=== PATIENT | female | born 1970 | race Caucasian/White ===

== ENCOUNTER 2016-09-08 11:03 | Emergency (ER) | payer OTHER ==
[~2016-09-08] VITALS: Ht 170.2 cm; Wt 54.1 kg
[~2016-09-08 11:03] MED LIST: albuterol inhaler
[2016-09-08 11:05] VITALS: BP 102/54; RESP 18; O2SAT 100
[2016-09-08 11:31] LABS: BASOPHILS % (AUTO) 0.5 % (0-3); EOSINOPHILS % (AUTO) 1.2 % (0-5); MONOCYTES % (AUTO) 7.6 % (4-12); Mean Corpuscular Hemoglobin 31.3 pg (27.0-35.0); Mean Corpuscular Volume 93.3 fL (81-100); Platelet Count 260 bil/L (150-400)
--- NOTE | 2016-09-08 11:49 | DRSVH ---
PROCEDURE: X-RAY CHEST ONE VIEW, PORTABLE ([id number]) INDICATIONS: CHEST PAIN TECHNIQUE: One view of the chest was acquired. COMPARISON: [facility], CR, CHEST 2VW, 08/15/2008, 17:07. FINDINGS: Surgical changes and devices: None. Lungs and pleura: Improved aeration of the lungs is noted since the previous exam with resolution of previously seen density at the right lung base. Hyperexpansion of the lungs appears to be present. No focal consolidation, effusion, or pneumothorax is evident. There is mild scarring within the lung apices. Mediastinum: Mediastinal contours appear normal. Heart size is normal. Bones and chest wall: No suspicious bony lesions. Overlying soft tissues appear unremarkable. IMPRESSION: 1. No acute cardiopulmonary process is suspected. 2. Mild pulmonary hyperexpansion may be related to prominent inspiratory effort. Chronic obstructiv e pulmonary disease may also have this appearance. Dictated by: Karthik Anguiano M.D. on 09/08/2016 at 10:46 Approved by: Karthik Anguiano M.D. on 09/08/2016 at 10:47
[2016-09-08 11:54] LABS: INR 0.97 ratio
[2016-09-08 12:11] LABS: Magnesium 2.2 mg/dL (1.6-2.6)
[2016-09-08 12:16] LABS: TROPONIN T < 0.010 ug/L (0.0-0.011)
[2016-09-08] MEDS ORDERED: LORazepam 1 mg Tablet PO ONE (12:55)
--- NOTE | 2016-09-08 13:27 | DRSVH ---
PROCEDURE: X-RAY NECK SOFT TISSUE ([id number]) INDICATIONS: sensation of something stuck in throat TECHNIQUE: 2 views of the neck were acquired. COMPARISON: None. FINDINGS: Airway: The airway appears patent. Soft tissues: Prevertebral soft tissues are normal in thickness. The epiglottis and aryepiglottic f olds appear normal. No soft tissue gas. No radiopaque foreign bodies are evident. Bones: No suspicious bony lesions. Reversal of the normal cervical lordosis is present with associa hayes mild to moderate degenerative changes, most pronounced at the level of C5-6. No spondylolisthesi s is evident. Visualized cervical spine is normally aligned. IMPRESSION: 1. The airway appears to be within normal limits. No radiopaque foreign bodies are evident. 2. Normal epiglottis. No prevertebral soft tissue swelling. 3. Mild to moderate degenerative changes of the cervical spine are most pronounced at C5-6. Dictated by: Karthik Anguiano M.D. on 09/08/2016 at 12:24 Approved by: Karthik Anguiano M.D. on 09/08/2016 at 12:25
--- NOTE | 2016-09-08 13:41 | ED.REPORT ---
HPI-Neck Pain Free Text HPI Notes Sep 08, 2016 ED Provider: Tyshawn Polo MD Patient is a 46-year-old woman with history of anxiety, recent diagnosis of lupus and systemic sclerosis, she was started on colchicine and Plaquenil last week, and states since then she has been having progressive worsening with sensation of something in her throat and difficulty swallowing. She denies not being able to swallow, or having anything come back up, she is not having difficulty breathing, but also states she is now experiencing sensation of shortness of breath and chest tightness. Her partner conveys that it had been mention that she has pulmonary hypertension and is going to be seeing a specialist at the [facility]. She now has lightheadedness, some dizziness, and believes that she is seeing lights that began while coming to the emergency department. No nausea vomiting or diarrhea, no rashes. No history of similar. Nursing Notes Stated Complaint: TROUBLE SWALLOWING/THROAT CLOSING Chief Complaint: Allergic Reaction Allergies: Coded Allergies: No Known Allergies (Verified , 09/08/16) Scheduled ([albuterol inhaler]) PRN General Time Seen by Provider: 11:18 Chief Complaint Other (Foreign body sensation in throat) Hx Obtained From: Patient Similar Sx Previous: No Past Medical History Past Medical History Anxiety Lupus Systemic sclerosis Past Surgical History Lumpectomy Family History Non-contributory Social History Lives with partner Alcohol Use: "Social" Physical Exam General: Laying in bed, no apparent distress. Thin appearing, well groomed. HEENT: Normocephalic, atraumatic, EOMI grossly, mucous membranes moist, uvula is midline, tonsils 1/4, neck is supple without lymphadenopathy, trachea is midline, thyroid is without nodules or asymmetry, hyoid bone is palpable in midline, gag reflex intact. Poor dentition. Cardiovascular: Regular rate and rhythm, no clicks murmurs rubs, peripheral pulses 2/4 equal bilaterally Pulmonary: Clear to auscultation bilaterally, no W/R/R. Abdominal: Soft to palpation, bowel sounds present 4, no hepatosplenomegaly. Negative rebound. Extremities: No edema appreciated. No tenderness, asymmetry. Tissue is consistent with sclerosis over the distal extremities. Neuro: Neurologically grossly intact, strength is equal bilaterally upper and lower extremities. MSK: Gait is normal, able to move extremities on their own volition, strength 5 out of 5 equal bilaterally to upper and lower extremities. Initial Vital Signs Vital Signs (First) Date Time Temp Pulse Resp B/P Pulse Ox O2 Delivery O2 Flow Rate FiO2 09/08/16 11:05 36.2 18 102/54 100 Room Air 09/08/16 14:06 63 Initial VS: Reviewed Interpretation & Diagnostics Lab Results Interpretation Result Diagram: 09/08/16 1120 09/08/16 1120 Test 09/08/16 11:20 White Blood Count 5.7th/mm3 (3.8-10.1) Red Blood Count 4.32mil/mm3 (3.90-5.20) Hemoglobin 13.5g/dL (12.0-15.6) Hematocrit 40.3% (35.0-46.0) Mean Corpuscular Volume 93.3fL (81-100) Mean Corpuscular Hemoglobin 31.3pg (27.0-35.0) Mean Corpuscular Hemoglobin Concent 33.5% (32.0-37.0) Red Cell Distribution Width 13.2% (12.3-15.4) Platelet Count 260bil/L (150-400) Neutrophils (%) (Auto) 67.0% (40-74) Lymphocytes (%) (Auto) 23.5% (14-46) Monocytes (%) (Auto) 7.6% (4-12) Eosinophils (%) (Auto) 1.2% (0-5) Basophils (%) (Auto) 0.5% (0-3) Prothrombin Time 10.4sec (8.1-12.5) Prothromb Time International Ratio 0.97ratio Activated Partial Thromboplast Time 25.9sec (22.8-33.0) Sodium Level 138mEq/L (134-144) Potassium Level 4.1mEq/L (3.5-5.2) Chloride Level 102mEq/L (97-108) Carbon Dioxide Level 21mmol/L (18-29) Blood Urea Nitrogen 10mg/dL (6-24) Creatinine 0.67mg/dL (0.57-1.00) Estimat Glomerular Filtration Rate 136mL/min (>59) Glucose Level 91mg/dL (60-99) Calcium Level 9.3mg/dL (8.5-10.1) Magnesium Level 2.2mg/dL (1.6-2.6) Total Bilirubin 0.2mg/dL (0.0-1.2) Aspartate Amino Transf (AST/SGOT) 21U/L (0-50) Alanine Aminotransferase (ALT/SGPT) 11U/L (0-32) Alkaline Phosphatase 47U/L (25-150) Troponin T < 0.010ug/L (0.0-0.011) Total Protein 7.7g/dL (6.4-8.4) Albumin 4.6g/dL (3.4-5.0) Lab Results Interpretation: Chemistries and hematology negative ECG Interpretation ECG Interpretation: Sinus rhythm, rate 71, normal axis, [place] interval 125, QTC 433. T-wave inversion in V1-3. X-Ray Chest Interpretation Chest Xray Interpretation: IMPRESSION: 1. No acute cardiopulmonary process is suspected. 2. Mild pulmonary hyperexpansion may be related to prominent inspiratory effort. Chronic obstructive pulmonary disease may also have this appearance. Interpretation / Wet Read by: Interpret - Radiologist X-Ray Interpretation Xray Interpretation: IMPRESSION: 1. The airway appears to be within normal limits. No radiopaque foreign bodies are evident. 2. Normal epiglottis. No prevertebral soft tissue swelling. 3. Mild to moderate degenerative changes of the cervical spine are most pronounced at C5-6. Interpretation / Wet Read by: Interpret - Radiologist Re-Eval/Medical Decision Med Decision/Clinical Course Patient was evaluated for foreign body sensation throat, she does not have any dysphagia. Patient stated she was concerned that her throat was closing up, soft tissue x-ray was performed which showed patent trachea, apparatus, no swelling, no foreign body, no masses, no abscesses. Chemistries and hematology were performed to evaluate for possible infection, early active etiology, all returned normal and negative. Interpretation of the results was discussed with the patient and her partner, this is most likely globus pharyngeus. Regards to the other symptoms really are possible side effects of medications, but not adverse reactions to them. This includes the occasional dark spots that are not present at this time in her visual martinez, and a tremor which she describes as being present mostly in the morning. Was unable to appreciate a tremor on exam. Patient was instructed to follow-up with her doctors regarding the possible side effects and that the only way to truly be sure if these were fax of her medication would be to take her off her meds and see if the symptoms persist which should be done under the guidance of her prescribing physician. Both patient and partner stated understanding and agreement. Return precautions and red flag symptoms were discussed including signs and symptoms of angioedema and stridor with instructions to call 911 immediately. Discharge & Departure Primary Impression: Globus pharyngeus Disposition: Home Discharge Condition All VS Reviewed: Yes Condition: Stable Additional Instructions: Thank you for entrusting us with your care. Evaluation today did not reveal any cause for the sensation you are feeling in your throat. We did not see any foreign bodies, retained pills, or signs of infections or masses. Evaluation for chest tightness did not show any evidence for a heart attack. It is possible this was a manifestation of anxiety, and I encourage you to follow up with your primary care doctor regarding ongoing anxiety treatment. Please follow-up with your primary care doctor regarding your chronic medical conditions, and if the sensation gets worse with your current ongoing medical treatment. Referrals: Shamika Castillo ARNP (PCP) Attending Statement The patient was seen and examined together with Dr. Fuchs on 09/08/16 and I agree with the history, exam and plan as outlined in the note above. copies to: Shamika Castillo ARNP O'Donnell, Noah M DO Sep 08, 2016 13:10 Tyshawn Polo MD Sep 08, 2016 14:20
[2016-09-08 14:06] VITALS: BP 92/60; PULSE 63; RESP 14; O2SAT 99
== END 2016-09-08 14:07 | disposition home or self-care (01) ==
LOC: SED 11:03
DX: F45.8 Other somatoform disorders (principal); M32.9 Systemic lupus erythematosus, unspecified